=== PATIENT | female | born 1995 | race Two or more races ===

== ENCOUNTER → 2019-06-16 | Emergency (ER) | payer MEDICAID ==
--- NOTE | 2019-06-16 01:57 | NUR ---
CALLED PT IN WAITING ROOM. NO RESPONSE.
--- NOTE | 2019-06-16 02:31 | NUR ---
CALLED PT IN WAITING ROOM. NO RESPONSE.
--- NOTE | 2019-06-16 03:14 | NUR ---
CALLED PT IN WAITING ROOM. NO RESPONSE.
== END | disposition left against medical advice (07) ==
LOC: ER 01:20
DX: Z53.21 Procedure and treatment not carried out due to patient leaving prior to being seen by health care provider (principal)

== ENCOUNTER 2019-06-26 19:45 | Emergency (ER) | payer MEDICAID ==
[~2019-06-26] VITALS: Ht 165.1 cm; Wt 59.0 kg
[2019-06-26 19:50] VITALS: BP 138/67
--- NOTE | 2019-06-26 19:56 | NUR ---
RIKY NEWMAN AT BEDSIDE TO KRAIG MULTANI.
--- NOTE | 2019-06-26 20:07 | NUR ---
PT REFUSE TO SIGN ACI, HOMELESS DISCHARGE FORM. PT LEFT AMBULATORY STATING "GOD SAVED ME ALREADY, I FEEL BETTER NOW".
== END 2019-06-26 20:27 | disposition home or self-care (01) ==
LOC: ER 19:49
DX: F22 Delusional disorders (principal)

== ENCOUNTER 2019-07-14 09:44 | Emergency (ER) | payer MEDICAID ==
[~2019-07-14] VITALS: Ht 165.1 cm; Wt 68.0 kg
--- NOTE | 2019-07-14 09:50 | NUR ---
JASON WHITE 88 Homeless from [place] running around screaming was picked up by [employer]- escorted by Officer Padmini [id number], PT IS AAOX3, NOT IN RESPIRATORY DISTRESS, HOOKED TO MONITOR, KEPT RESTED AND COMFORTABLE, WILL CONTINUE TO MONITOR.
--- NOTE | 2019-07-14 10:08 | NUR ---
PT SEEN AND EXAMINED BY .
--- NOTE | 2019-07-14 10:12 | NUR ---
ER PHLEB AT BEDSIDE FOR BLOOD DRAW.
--- NOTE | 2019-07-14 10:14 | NUR ---
PT REFUSED BLOOD DRAW.
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
[2019-07-14 12:02] VITALS: BP 128/66
--- NOTE | 2019-07-14 12:10 | NUR ---
SPOKE TO POLLUTION CONTROL CHEMIST [id number], MICKEY NOTIFIED TO ESCORT PT OFF PREMISES.
== END 2019-07-14 14:29 | disposition home or self-care (01) ==
LOC: ER 09:45
DX: R45.6 Violent behavior (principal); F41.9 Anxiety disorder, unspecified

== ENCOUNTER 2019-10-19 01:33 | Emergency (ER) | payer MEDICAID ==
[~2019-10-19] VITALS: Ht 165.1 cm; Wt 63.5 kg
[2019-10-19 04:40] VITALS: BP 117/84
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
[2019-10-19 05:08] LABS: APPEARANCE,URINE Clear (CLEAR); BILIRUBIN,URINE Negative (NEGATIVE); BLOOD, URINE Negative Ery/uL (NEGATIVE); COLOR,URINE Yellow (YELLOW); KETONES,URINE Trace (NEGATIVE); LEUKOCYTE ESTERASE ,URINE Negative (NEGATIVE); NITRITE, URINE Positive (NEGATIVE); PROTEIN,URINE Negative (NEGATIVE); UGLUCOSE Negative (NEGATIVE); UROBILINOGEN,URINE 0.2 EU/dL (0.2)
[2019-10-19 05:23] LABS: RBC,URINE 0-2 /HPF (0-2); SQUAMOUS EPITHELIAL CELL,UR Few /HPF (None Seen)
[2019-10-19 05:24] LABS: BACTERIA,URINE Many /HPF (None Seen)
== END 2019-10-19 05:37 | disposition home or self-care (01) ==
LOC: ER 01:33
DX: F41.9 Anxiety disorder, unspecified (principal); Z59.0 Homelessness
CPT/HCPCS: 81000-TC; 84703-TC; 87086-TC

== ENCOUNTER 2019-10-19 08:14 | Emergency (ER) | payer MEDICAID ==
[~2019-10-19] VITALS: Ht 165.1 cm; Wt 63.5 kg
--- NOTE | 2019-10-19 08:27 | NUR ---
More anxious than usual Placed on ER 15
--- NOTE | 2019-10-19 08:44 | NUR ---
PT SEEN AND EXAMINED BY .
--- NOTE | 2019-10-19 08:58 | NUR ---
BREAKFAST TRAY PROVIDED, TOLERATING PO WELL.
[2019-10-19 09:13] LABS: CALCIUM, SERUM 8.4 mg/dL (8.5-10.1); CARBON DIOXIDE 29 mmol/L (21-32); CHLORIDE 106 mmol/L (98-107); CREATININE 0.9 mg/dL (0.6-1.3); GLUCOSE 115 mg/dL (74-106); POTASSIUM 3.7 mmol/L (3.5-5.1); SODIUM SERUM 142 mmol/L (136-145); UREA NITROGEN, BLOOD 9 mg/dL (7-18)
--- NOTE | 2019-10-19 09:15 | NUR ---
Freddie noble in [facility] - 10/19/19 at 0952 by SOLOMON AUDI
[2019-10-19 09:22] LABS: BASOPHILS % (AUTO) 0.3 % (0.0-2.0); HEMATOCRIT 35 % (33-45); HEMOGLOBIN 11.7 g/dL (11.5-14.8); LYMPHOCYTES # (AUTO) 1.5 /CMM (0.8-4.8); MEAN CORPUSCULAR HGB CONC 34 g/dl (31.0-36.0); MEAN CORPUSCULAR VOLUME 89 fL (82-100); MONOCYTES # (AUTO) 0.4 /CMM (0.1-1.30); MONOCYTES % (AUTO) 4.3 % (2.0-12.0); NEUTROPHILS # (AUTO) 6.8 /CMM (1.8-8.9); NEUTROPHILS % (AUTO) 74.4 % (43.0-81.0); PLATELET COUNT (AUTO) 193 /CMM (150-450); RED BLOOD CELL COUNT(AUTO) 3.91 MIL/uL (4.0-5.2); WHITE BLOOD COUNT (AUTO) 9.1 K/uL (4.3-11.0)
[2019-10-19 09:26] LABS: ALANINE AMINOTRANSFERASE 22 U/L (12-78); ALBUMIN 3.6 g/dL (3.4-5.0); ALCOHOL, BLOOD < 3 mg/dL (0-0); ALKALINE PHOSPHATASE 91 U/L (46-116); ASPARTATE AMINOTRANSFERASE 19 U/L (15-37); BILIRUBIN,TOTAL 0.2 mg/dL (0.2-1.0); TOTAL PROTEIN, SERUM 6.7 g/dL (6.4-8.2)
[2019-10-19 09:30] LABS: SALICYLATE 0.8 mg/dL (2.8-20.0)
--- NOTE | 2019-10-19 09:30 | NUR ---
URINAL GIVEN BUT UNABLE TO PROVIDE URINE SPECIMEN THIS TIME.
[2019-10-19 10:15] LABS: ACETAMINOPHEN 0 ug/ml (10-30)
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
--- NOTE | 2019-10-19 10:55 | NUR ---
Patient given written and verbal discharge instructions. Patient verbalizes understanding of instructions. Patient is ambulatory with steady gait. Refuses offer of penitentiary placement. Patient given list of available shelters in surrounding area. Patient discharged in proper clothing with all belongings returned. Name band removed.
[2019-10-19 10:58] VITALS: BP 132/81
== END 2019-10-19 10:59 | disposition home or self-care (01) ==
LOC: ER 08:19
DX: F41.0 Panic disorder [episodic paroxysmal anxiety] (principal); Z59.0 Homelessness
CPT/HCPCS: 36415; 80048; 80076; 80307; 80329; 85025; 99283; G0480

== ENCOUNTER 2019-10-20 09:09 | Emergency (ER) | payer MEDICAID ==
[~2019-10-20] VITALS: Ht 165.1 cm; Wt 63.5 kg
--- NOTE | 2019-10-20 11:30 | NUR ---
FOOD TRAY PROVIDED. PATIENT TOLERATED PO WELL.
--- NOTE | 2019-10-20 14:38 | NUR ---
Patient given written and verbal discharge instructions. Patient verbalizes understanding of instructions. Patient is ambulatory with steady gait. Refuses offer of assisted placement. Patient given list of available shelters in surrounding area.
[2019-10-20 16:31] VITALS: BP 126/75
== END 2019-10-20 14:38 | disposition home or self-care (01) ==
LOC: ER 09:09
DX: M54.9 Dorsalgia, unspecified (principal); F41.9 Anxiety disorder, unspecified; Z59.0 Homelessness

== ENCOUNTER 2019-11-03 18:13 | Emergency (ER) | payer MEDICAID ==
[~2019-11-03] VITALS: Ht 162.6 cm; Wt 85.3 kg
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
[2019-11-03] MEDS ORDERED: OLANZAPINE 5 MG TABLET ONE (18:36)
--- NOTE | 2019-11-03 18:38 | NUR ---
FOOD TRAY PROVIDED
--- NOTE | 2019-11-03 18:58 | NUR ---
Patient given written and verbal discharge instructions. Patient verbalizes understanding of instructions. Patient is ambulatory with steady gait. Refuses offer of penitentiary placement. Patient given list of available shelters in surrounding area. All belongings returned to patient, name band removed.
[2019-11-03 18:59] VITALS: BP 132/68
[2019-11-03] MEDS ORDERED: OLANZAPINE 5 MG TABLET PO ONE (19:00)
== END 2019-11-03 19:00 | disposition home or self-care (01) ==
LOC: ER 18:15
DX: F41.9 Anxiety disorder, unspecified (principal); I10 Essential (primary) hypertension; Z59.0 Homelessness

== ENCOUNTER 2019-11-04 08:18 | Emergency (ER) | payer MEDICAID ==
[~2019-11-04] VITALS: Ht 165.1 cm; Wt 72.6 kg
--- NOTE | 2019-11-04 08:19 | NUR ---
BIB [id number] Homeless "Anxiety/Panic attacks - was seen here yesterday for same reason. to chair 4, dr nunez at bedside
--- NOTE | 2019-11-04 08:38 | NUR ---
BREAKFAST TRAY PROVIDED, PATIENT TOLETARTING PO WELL
--- NOTE | 2019-11-04 09:02 | NUR ---
Patient given written and verbal discharge instructions. Patient verbalizes understanding of instructions. Patient is ambulatory with steady gait. Refuses offer of halfway placement. Patient given list of available shelters in surrounding area. Patient in proper clothing upon discharge, name band removed, all belongings with patient.
[2019-11-04 09:03] VITALS: BP 126/80
== END 2019-11-04 09:04 | disposition home or self-care (01) ==
LOC: ER 08:20
DX: F41.0 Panic disorder [episodic paroxysmal anxiety] (principal); F32.9 Major depressive disorder, single episode, unspecified; Z59.0 Homelessness

== ENCOUNTER 2019-12-07 06:56 | Emergency (ER) | payer MEDICAID ==
[~2019-12-07] VITALS: Ht 165.1 cm; Wt 59.0 kg
[2019-12-07 06:56] VITALS: BP 129/80
[2019-12-07] MEDS ORDERED: ACETAMINOPHEN 325 MG TABLET ONE (07:17)
[2019-12-07] MEDS ORDERED: ACETAMINOPHEN 325 MG TABLET PO ONE (07:30)
--- NOTE | 2019-12-07 07:44 | NUR ---
Pt Eloped prior to discharge
== END 2019-12-07 07:46 | disposition home or self-care (01) ==
LOC: ER 06:56
DX: G89.29 Other chronic pain (principal); M25.531 Pain in right wrist; F15.10 Other stimulant abuse, uncomplicated; F41.9 Anxiety disorder, unspecified; F32.9 Major depressive disorder, single episode, unspecified; Z59.0 Homelessness